=== PATIENT | male | born 1990 | race Two or more races ===

== ENCOUNTER 2017-11-09 19:10 | Emergency (ER) | payer MEDICAID ==
[~2017-11-09] VITALS: Ht 172.7 cm; Wt 90.3 kg
[2017-11-09] MEDS ORDERED: IV NS 0.9% 1,000 ML BAG IV ONE (20:00)
[2017-11-09] MEDS ORDERED: MORPHINE SULFATE INJ 2 MG/ML DISP.SYRIN IV ONE (20:00)
[2017-11-09] MEDS ORDERED: ONDANSETRON HCL/PF 4 MG/2 ML VIAL IVP ONE (20:00)
[2017-11-09] MEDS ORDERED: ONDANSETRON HCL/PF 4 MG/2 ML VIAL ONE (20:04)
[2017-11-09] MEDS ORDERED: MORPHINE SULFATE INJ 4 MG/ML DISP.SYRIN ONE (20:04)
[2017-11-09 20:15] LABS: BASOPHILS # (AUTO) 0.2 /CMM (0.0-0.2); BASOPHILS % (AUTO) 1.5 % (0.0-2.0); EOSINOPHILS % (AUTO) 0.4 % (0.0-6.0); HEMATOCRIT 46 % (39-51); HEMOGLOBIN 15.1 g/dL (13.5-17.5); LYMPHOCYTES # (AUTO) 1.4 /CMM (0.8-4.8); MEAN CORPUSCULAR HEMOGLOBIN 27 PG (26.0-33.0); MEAN CORPUSCULAR HGB CONC 33 g/dl (31.0-36.0); MEAN CORPUSCULAR VOLUME 82 fL (80-96); MONOCYTES # (AUTO) 0.7 /CMM (0.1-1.30); MONOCYTES % (AUTO) 6.1 % (2.0-12.0); NEUTROPHILS # (AUTO) 9.6 /CMM (1.8-8.9); PLATELET COUNT (AUTO) 262 /CMM (150-450); RDW COEFFICIENT OF VARIATION 12.9 (11.5-15.0); RED BLOOD CELL COUNT(AUTO) 5.57 MIL/uL (4.5-6.0); WHITE BLOOD COUNT (AUTO) 11.9 K/uL (4.3-11.0)
[2017-11-09 20:19] LABS: CALCIUM, SERUM 9.3 mg/dL (8.5-10.1); CARBON DIOXIDE 27 mmol/L (21-32); CHLORIDE 105 mmol/L (98-107); CREATININE 1.3 mg/dL (0.6-1.3); GLUCOSE 92 mg/dL (74-106); POTASSIUM 3.5 mmol/L (3.5-5.1); SODIUM SERUM 139 mmol/L (136-145); UREA NITROGEN, BLOOD 16 mg/dL (7-18)
--- NOTE | 2017-11-09 20:23 | NUR ---
BIB SELF COMPLAINING OF BACK PAIN. NO TRAUMA NOTED. AA/OX4. AMBULATED TO HOSPITAL BED WITH STABLE GAIT. PEDAL PULSES AND BILATERAL RADIAL PULSES PRESENT. NO N/V. SKIN PINK, WARM, DRY. NAD. VSS. STABLE CONDITION. WILL CONTINUE TO MONITOR. Addendum: 11/09/17 at 2034 by LEROY PT UNCOOPERATIVE TO ASSESSMENT. FAMILY AT BEDSIDE
[2017-11-09 20:27] LABS: TROPONIN I < 0.017 ng/mL (0.00-0.056)
[2017-11-09] MEDS ORDERED: CT SWABBABLE VALVE TRANS SET 1 EA INFUS.SET MC ONE (20:28)
[2017-11-09] MEDS ORDERED: IOHEXOL-350 100 ML VIAL IV ONE (20:28)
[2017-11-09] MEDS ORDERED: IV NS 0.9% 250 ML IV ONE (20:28)
[2017-11-09 20:30] LABS: INR 0.95 (0.85-1.15)
--- NOTE | 2017-11-09 20:40 | NUR ---
PT BROUGHT TO CT
--- NOTE | 2017-11-09 20:53 | NUR ---
PT RETURNED FROM CT
--- NOTE | 2017-11-09 21:49 | NUR ---
Patient discharged to home in stable condition. Written and verbal after care instructions given. Patient verbalizes understanding of instruction. IV removed. Catheter intact and site benign. Pressure and 4x4 applied to site. No bleeding noted. AMBULATED WITH STEADY GAIT UPON DC
[2017-11-09 21:50] VITALS: BP 138/80
== END 2017-11-09 21:51 | disposition home or self-care (01) ==
LOC: ER 19:12
DX: M54.5 Low back pain (principal); R07.89 Other chest pain; K59.00 Constipation, unspecified
CPT/HCPCS: 36415; 71275; 74174; 80048; 84484; 85025; 85730; 93005; 99285; A4606; J2270; J2405; J7030; J7050; Q9967; Z7610